=== PATIENT | male | born 1935 | race Caucasian/White ===

== ENCOUNTER 2016-07-15 20:47 | Emergency (ER) | payer OTHER ==
[2016-07-15 20:54] VITALS: TEMP 97.7
--- NOTE | 2016-07-15 21:26 | EDPHY ---
H & P HPI/ROS: Chief complaint. Urinating blood HPI. 81-year-old male painless urinary bleeding. Some small clots though able to urinate. No urinary frequency or dysuria. The bleeding began this evening. No fever abdominal pain. Previously has had similar symptoms with workup which may be was thought to be taking too much aspirin as a cause. No flank tenderness. ROS Constitutional. no fever/chills, no weakness Eyes. no problems with vision ENT. no sore throat, no nasal drainage Cardiovascular. no chest pain Respiratory. no shortness of breath, no cough Abdominal. no abdominal pain, no nausea/vomiting, no diarrhea . Blood in urine MS. no calf pain/swelling, no neck/back pain, no joint pain Skin. no rash Lymph. no swollen glands Neuro. no headache, no dizziness, no difficulty walking or with speech Past Medical/Surgical History: Past medical history is significant for previous hematuria, asthma, prostate surgery Social History: , nonsmoker, no alcohol Smoking Status: Never smoked Physical Exam: General Appearance: Alert well-developed male mild distress vital signs are stable Eyes: Pupils equal and round no pallor or injection. ENT, Mouth: Mucous membranes are moist. Respiratory: There are no retractions, lungs are clear to auscultation. Cardiovascular: Regular rate and rhythm. Gastrointestinal: Abdomen is soft and nontender, no masses, bowel sounds normal. Penis and testicles are normal Neurological: Awake and alert, sensory and motor exams grossly normal. Skin: Warm and dry, no rashes. Musculoskeletal: Neck is supple nontender. Extremities symmetrical, full range of motion. Psychiatric: Patient is oriented X 3, there is no agitation. Constitutional: Initial Vital Signs Temperature (C) 36.5 C 07/15/16 20:50 Heart Rate 77 07/15/16 20:50 Respiratory Rate 16 07/15/16 20:50 Blood Pressure 160/101 H 07/15/16 20:50 O2 Sat (%) 96 07/15/16 20:50 O2 Delivery Mode Room Air Allergies/Adverse Reactions: No Known Allergies Allergy (Verified 07/15/16 20:55) Home Medications: Medication Instructions Recorded Albuterol [Proventil Inhaler HFA 1 - 2 puffs IH Q4H 06/06/14 (RX)] Flovent 110 MCG Hfa MDI (*) 07/15/16 Medical Decision Making - Diagnostics Imaging: CT abdomen and pelvis with IV contrast shows normal kidneys. No masses are seen in the kidneys. Prostate is enlarged and indenting into the bladder. This may be the source of the bleeding ED Course/Re-evaluation: Re-evaluation at 9:50 p.m.. The patient remained stable. The patient, his , and I discussed laboratory evaluation, treatment plan including criteria for return importance of follow-up and further evaluation. They expressed understanding and agreement. We discussed imaging studies and we will do a CT abdomen and pelvis with IV contrast re-evaluation at 11:00 p.m.. Patient, his , and I discussed imaging studies. Differential Diagnosis: Painless hematuria may be from patient's prostate. We considered kidney cancer which there is no evidence of tumor or mass. This may also be coming from the wall of the bladder. I also considered urinary tract infection. - Data Points Laboratory Results: Laboratory Results 07/15/16 21:00 07/15/16 21:00 07/15/16 07/15/16 07/15/16 21:00 21:00 21:00 WBC 8.39 10^3/uL 10^3/uL (3.80-9.50) RBC 4.80 10^6/uL 10^6/uL (4.40-6.38) Hgb 15.8 g/dL g/dL (13.7-17.5) Hct 45.9 % % (40.0-51.0) MCV 95.6 fL fL (81.5-99.8) MCH 32.9 pg pg (27.9-34.1) MCHC 34.4 g/dL g/dL (32.4-36.7) RDW 12.9 % % (11.5-15.2) Plt Count 227 10^3/uL 10^3/uL (150-400) MPV 9.9 fL fL (8.7-11.7) Neut % (Auto) 57.1 % % (39.3-74.2) Lymph % (Auto) 26.6 % % (15.0-45.0) [place] % (Auto) 12.3 % % (4.5-13.0) Eos % (Auto) 3.2 % % (0.6-7.6) Baso % (Auto) 0.6 % % (0.3-1.7) Nucleat RBC Rel Count 0.0 % % (0.0-0.2) Absolute Neuts (auto) 4.79 10^3/uL 10^3/uL (1.70-6.50) Absolute Lymphs (auto) 2.23 10^3/uL 10^3/uL (1.00-3.00) Absolute Monos (auto) 1.03 10^3/uL H 10^3/uL (0.30-0.80) Absolute Eos (auto) 0.27 10^3/uL 10^3/uL (0.03-0.40) Absolute Basos (auto) 0.05 10^3/uL 10^3/uL (0.02-0.10) Absolute Nucleated RBC 0.00 10^3/uL 10^3/uL (0-0.01) Immature Gran % 0.2 % % (0.0-1.1) Immature Gran # 0.02 10^3/uL 10^3/uL (0.00-0.10) PT 13.5 SEC SEC (12.0-15.0) INR 1.04 (0.83-1.16) APTT 26.6 SEC SEC (23.0-38.0) Sodium 137 mEq/L mEq/L (134-144) Potassium 4.6 mEq/L mEq/L (3.5-5.2) Chloride 106 mEq/L mEq/L (97-110) Carbon Dioxide 22 mEq/l mEq/l (22-31) Anion Gap 9 mEq/L mEq/L (8-16) BUN 27 mg/dL H mg/dL (7-23) Creatinine 1.1 mg/dL mg/dL (0.7-1.3) Estimated GFR > 60 Glucose 99 mg/dL mg/dL (70-100) Calcium 9.4 mg/dL mg/dL (8.5-10.4) Urine Color Urine Appearance Urine pH Ur Specific [place] Urine Protein Urine Ketones Urine Blood Urine Nitrate Urine Bilirubin Urine Urobilinogen Ur Leukocyte Esterase Urine RBC Urine WBC Ur Epithelial Cells Urine Glucose 07/15/16 21:00 WBC RBC Hgb Hct MCV MCH MCHC RDW Plt Count MPV Neut % (Auto) Lymph % (Auto) [place] % (Auto) Eos % (Auto) Baso % (Auto) Nucleat RBC Rel Count Absolute Neuts (auto) Absolute Lymphs (auto) Absolute Monos (auto) Absolute Eos (auto) Absolute Basos (auto) Absolute Nucleated RBC Immature Gran % Immature Gran # PT INR APTT Sodium Potassium Chloride Carbon Dioxide Anion Gap BUN Creatinine Estimated GFR Glucose Calcium Urine Color RED Urine Appearance TURBID Urine pH TNP Ur Specific [place] TNP Urine Protein TNP Urine Ketones TNP Urine Blood TNP Urine Nitrate TNP Urine Bilirubin TNP Urine Urobilinogen TNP Ur Leukocyte Esterase TNP Urine RBC 50-182 /hpf H /hpf (0-3) Urine WBC 0-1 /hpf /hpf (0-3) Ur Epithelial Cells NONE SEEN /lpf /lpf (NONE-1+) Urine Glucose TNP Departure - Departure Disposition: Home, Routine, Self-Care Clinical Impression: Hematuria Condition: Good Instructions: Hematuria (ED) Additional Instructions: Drink plenty of fluids to continue to flush blood from bladder. Return for difficulty urinating. Call Dr. goldberg office on Sunday for further evaluation. Return sooner over the weekend for worsening symptoms Referrals: Feliberto Ram MD [Primary Care Provider] - As per Instructions Aide Cunha MD [Medical Doctor] - 2-3 days without fail
[2016-07-15 21:37] LABS: COLOR RED
[2016-07-15 21:38] LABS: WBC,URINE 0-1 /hpf (0-3)
[2016-07-15 21:39] LABS: RBC,URINE 50-182 /hpf (0-3)
[2016-07-15 21:40] LABS: % IMMATURE GRANULYOCYTES 0.2 % (0.0-1.1); ABSOLUTE IMMATURE GRANULOCYTES 0.02 10^3/uL (0.00-0.10); ADD DIFF? NO; ADD MORPH? NO; ADD SCAN? NO; ATYPICAL LYMPHOCYTE FLAG 10 (0-99); FRAGMENT RBC FLAG 0 (0-99); HEMATOCRIT 45.9 % (40.0-51.0); HEMOGLOBIN 15.8 g/dL (13.7-17.5); LEFT SHIFT FLG 0 (0-99); LIPEMIA HEMOLYSIS FLAG 90 (0-99); MEAN CELL HEMOGLOBIN 32.9 pg (27.9-34.1); MEAN CELL HEMOGLOBIN CONCENTR. 34.4 g/dL (32.4-36.7); MEAN CELL VOLUME 95.6 fL (81.5-99.8); MEAN PLATELET VOLUME 9.9 fL (8.7-11.7); PLATELET CLUMPS FLAG 0 (0-99); PLATELET COUNT 227 10^3/uL (150-400); RED CELL DISTRIBUTION WIDTH 12.9 % (11.5-15.2)
[2016-07-15 21:44] LABS: INR 1.04 (0.83-1.16); PROTIME(PATIENT) 13.5 SEC (12.0-15.0)
[2016-07-15 21:45] LABS: APTT 26.6 SEC (23.0-38.0)
[2016-07-15 21:46] LABS: ANION GAP 9 mEq/L (8-16); CALCIUM 9.4 mg/dL (8.5-10.4); CARBON DIOXIDE 22 mEq/l (22-31); CHLORIDE 106 mEq/L (97-110); CREATININE 1.1 mg/dL (0.7-1.3); GLOMERULAR FILTRATION RATE > 60; GLUCOSE 99 mg/dL (70-100); POTASSIUM 4.6 mEq/L (3.5-5.2); SODIUM 137 mEq/L (134-144)
[2016-07-15] MEDS ORDERED: IOPAMIDOL (ISOVUE-300) 100 ML BTL IV ONE (22:05)
[2016-07-15 23:23] VITALS: BP 154/97; PULSE 67; RESP 18; O2SAT 95
[2016-07-18 13:48] LABS: FREE PSA 1.1 ng/mL; PSA RATIO F/T 0.12 ratio; TOTAL PSA 9.1 ng/mL (<=7.2)
== END 2016-07-15 23:24 | disposition home or self-care (01) ==
DX: R31.9 Hematuria, unspecified (principal); J45.909 Unspecified asthma, uncomplicated
CPT/HCPCS: 74177; 99285; Q9967; 84154-90